=== PATIENT | male | born 1960 | race Caucasian/White ===

== ENCOUNTER 2020-03-30 17:35 | Emergency (ER) | payer OTHER, SELFPAY ==
--- NOTE | ~2020-03-30 | XR_ITS ---
EXAMINATION: XR knee RT min 4V DATE: 03/30/2020 18:25 INDICATION: Right knee pain TECHNIQUE: Four views of the right knee were obtained. COMPARISON: None. FINDINGS: Alignment is normal. No fracture or osteochondral lesion. There is mild tricompartmental os teoarthritis characterized by tiny marginal osteophytes. There is a small knee joint effusion. Soft t issues are unremarkable. IMPRESSION: 1. Small knee joint effusion and osteoarthritis without acute osseous abnormality. Reviewed, dictated and finalized at location A. [employer] IMPRESSION: 1. Small knee joint effusion and osteoarthritis without acute osseous abnormali ty.
[2020-03-30 17:53] VITALS: BP 152/103; PULSE 88; RESP 16; TEMP 36.9; O2SAT 99
--- NOTE | 2020-03-30 18:05 | ED.GENADULT ---
HPI - General Adult General Chief complaint: Extremity Injury, Lower Stated complaint: Knee Pain Time Seen by Provider: 03/30/20 18:05 Source: patient and RN notes reviewed Mode of arrival: ambulatory Limitations: no limitations History of Present Illness HPI narrative: 60-year-old male presents with complains of right knee pain for 1 day. 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 Ice without relief. No radiation of pain. No numbness or tingling, or bleeding. No swelling. No loss of mobility. Exacerbating factor consist of bearing weight. No fever. Remains active. The patient reports he have not been diagnosed with COVID-19. The patient reports he is not waiting for the results of a COVID-19 lab test. The patient reports he do not have chills, weakness, or fatigue. The patient reports he do not have a new or worsening cough or shortness of breath. Denies chest pain. The patient reports he do not have any rhinorrhea, congestion, loss of taste or smell, sore throat, nausea, vomiting, abdominal pain, and diarrhea. Tolerating po intake well. Denies recent traveling. Denies concerns for COVID-19 or exposures been home with limited outdoor exposure except for essential household needs, work, and return home. At this time, patient is not suspected of having COVID-19. Some parts of this dictation were generated by voice recognition software and may contain typographical and/or grammatical inaccuracies. Related Data Home Medications Medication Instructions Recorded Confirmed amlodipine [Norvasc] 10 mg PO DAILY 03/30/20 03/30/20 aspirin [Adult Aspirin EC Low 81 mg PO DAILY 03/30/20 03/30/20 Strength] losartan 50 mg PO DAILY 03/30/20 03/30/20 metoprolol succinate [Toprol XL] 50 mg PO BID 03/30/20 03/30/20 rivaroxaban [Xarelto] 20 mg PO DAILY 03/30/20 03/30/20 simvastatin [Zocor] 20 mg PO HS 03/30/20 03/30/20 Allergies Allergy/AdvReac Type Severity Reaction Status Date / Time No Known Allergies Allergy Verified 03/30/20 17:55 Review of Systems Review of Systems: Narrative: CONSTITUTIONAL: Denies fever, chills, sweats. EYES: Denies visual changes, redness, discharge. ENT: Denies rhinorrhea, congestion, sore throat, otalgia. CARDIOVASCULAR: Denies chest pain, palpitations, edema. RESPIRATORY: Denies dyspnea, wheezing, cough. GASTROINTESTINAL: Denies abdominal pain, nausea, vomiting, diarrhea. SKIN: Denies rash or itching. MUSCULOSKELETAL: Denies acute back pain or myalgia. Complains of Right knee pain. NEUROLOGIC: Denies numbness or focal weakness. PSYCHIATRIC: Denies anxiety or depression. All other systems reviewed & are unremarkable except as noted in HPI and below. [facility] Past Medical History Medical History (Updated 03/31/20 @ 00:00 by Jon Ricketts) Atrial fibrillation Hypercholesteremia Hypertension Obesity Surgical History Surgical History (Updated 03/30/20 @ 18:24 by SHANICE Pyle) History of adenoidectomy History of surgery on upper extremity Left elbow History of tonsillectomy Hx of appendectomy Family History Family History (Updated 03/30/20 @ 18:25 by SHANICE Pyle) Father , Related to emphysema Smoker in home Mother , Related to GI problems GI problem Social History Social History (Updated 03/30/20 @ 18:26 by SHANICE Pyle) Smoking status: Former smoker Tobacco type: cigarettes Second hand tobacco smoke exposure: No Smoking end date: 07/10/16 Alcohol intake: never Substance use: never Living arrangements: with family Additional living arrangements comments: spouse Occupation/Education: occupation Gender identity (if verbalized by the patient): Male Sexual Orientation (if Verbalized by the Patient): Straight or Heterosexual Comments At time of signature, agree with nurse past medical, surgical, social, a
[2020-03-30 18:45] VITALS: BP 130/86
== END 2020-03-30 18:51 | disposition home or self-care (01) ==
PROVIDERS: Emergency Provider Nurse Practitioner Family; PCP Family Medicine
DX: S80.01XA Contusion of right knee, initial encounter (principal); X58.XXXA Exposure to other specified factors, initial encounter; I48.91 Unspecified atrial fibrillation; E78.00 Pure hypercholesterolemia, unspecified; I10 Essential (primary) hypertension; E66.9 Obesity, unspecified; Z68.37 Body mass index [BMI] 37.0-37.9, adult
CPT/HCPCS: 73564; 99213; G0463

== ENCOUNTER → 2021-08-27 09:48 | Outpatient (CLI) | payer OTHER, SELFPAY ==
--- NOTE | ~2021-08-27 | XR_ITS ---
EXAM: XR shoulder LT min 2V DATE: 08/27/2021 10:16 HISTORY: Chronic left shoulder pain . COMPARISON: None available. FINDINGS: Normal mineralization. No fracture or dislocation. No lytic or blastic lesion. Glenohumera l narrowing, subchondral sclerosis, and osteophytosis. Mild degenerative AC joint change. No erosion or periosteal change. Soft tissues within normal limits. IMPRESSION: Moderate glenohumeral osteoarthritis. Reviewed, dictated and finalized at location K.
== END ==
PROVIDERS: PCP Physician Assistant Medical; Visit Provider Physician Assistant Medical
DX: M19.012 Primary osteoarthritis, left shoulder (principal)
CPT/HCPCS: 73030

== ENCOUNTER 2023-02-28 18:11 | Emergency (ER) | payer OTHER, SELFPAY ==
[2023-02-28 18:24] VITALS: BP 152/79; PULSE 86; RESP 16; TEMP 38.3; O2SAT 98
--- NOTE | 2023-02-28 18:26 | ED.URI ---
HPI - URI/Sore Throat General Chief Complaint: Upper Respiratory Infection Stated Complaint: POS COVID test today Time Seen by Provider: 02/28/23 18:24 Source: patient Mode of arrival: ambulatory Limitations: no limitations History of Present Illness HPI Narrative: Herb is a 62-year-old male patient presenting to the clinic today with complaints of cough, congestion, runny nose, and fever. Reports he did at home COVID test and was positive. Denies any chest pain or shortness of breath. MD elicited complaint: fever, cough, sore throat, rhinorrhea and nasal congestion Related Data Home Medications Medication Instructions Recorded Confirmed amlodipine 10 mg tablet (Norvasc) 10 mg PO DAILY 03/30/20 02/28/23 aspirin 81 mg tablet,delayed 81 mg PO DAILY 03/30/20 02/28/23 release losartan 50 mg tablet 50 mg PO DAILY 03/30/20 02/28/23 metoprolol succinate 50 mg 50 mg PO BID 03/30/20 02/28/23 tablet,extended release 24 hr (Toprol XL) rivaroxaban 20 mg tablet (Xarelto) 20 mg PO DAILY 03/30/20 02/28/23 simvastatin 20 mg tablet (Zocor) 20 mg PO HS 03/30/20 02/28/23 furosemide 20 mg tablet 20 mg PO DAILY 02/28/23 02/28/23 Allergies Allergy/AdvReac Type Severity Reaction Status Date / Time No Known Allergies Allergy Verified 02/28/23 18:21 Review of Systems Review of Systems: Pertinent positives per HPI. Patient denies any rash, headache, visual changes, dizziness, shortness of breath, chest pain, palpitations, nausea, vomiting, diarrhea, constipation, abdominal pain, or any urinary issues. [facility] Past Medical History Medical History Atrial fibrillation Hypercholesteremia Hypertension Obesity Surgical History Surgical History History of adenoidectomy History of surgery on upper extremity Left elbow History of tonsillectomy Hx of appendectomy Family History Family History Father , Related to emphysema Smoker in home Mother , Related to GI problems GI problem Social History Social History Smoking status: Former smoker Tobacco type: cigarettes Second hand tobacco smoke exposure: No Smoking end date: 07/10/16 Alcohol intake: never Substance use: never Living arrangements: with family Additional living arrangements comments: spouse Occupation/Education: occupation Gender identity (if verbalized by the patient): Male Sexual Orientation (if Verbalized by the Patient): Straight or Heterosexual Comments At the time of my signature, I reviewed and agree with the nursing past medical, surgical, social, and family history. There is no relevant family history pertinent to the patient complaint. Exam Narrative: General: Well-developed, well nourished, in no apparent distress Head: Normocephalic, atraumatic Eyes: Pupils equally round and reactive to light bilaterally, EOM intact, sclera and conjunctive clear, no discharge, lids normal Ears: TMs intact and clear, ear canals clear, no drainage, grossly hearing normal. Nose: Nares patent, clear nasal discharge, no inflammation, no sinus tenderness. Mouth: Oral pharynx without lesions or masses, good dentition, MMM. Neck: Supple, trachea midline, no enlargement of anterior or posterior cervical nodes, no thyroid masses or goiter palpable. Cardio: Regular rate and rhythm, s1 and s2 normal, no murmur appreciated. Resp: Clear to auscultation bilaterally, no rhonchi, rales, wheezing or rubs Course Course Emergency Course: Portions of this record may have been created with voice recognition software. Level of Care: Express Care Visit Vital Signs Vital signs: Vital Signs Temperature 38.3 C H 02/28/23 18:24 Pulse Rate 86 02/28/23 18:24 Respiratory Rate 16 02/28/23
== END 2023-02-28 18:44 | disposition home or self-care (01) ==
PROVIDERS: Emergency Provider Nurse Practitioner Family; PCP Physician Assistant Medical
DX: U07.1 COVID-19 (principal); Z87.891 Personal history of nicotine dependence; I48.91 Unspecified atrial fibrillation; E78.00 Pure hypercholesterolemia, unspecified; I10 Essential (primary) hypertension; E66.9 Obesity, unspecified; Z68.36 Body mass index [BMI] 36.0-36.9, adult; Z79.82 Long term (current) use of aspirin
CPT/HCPCS: 87426; 99213; C9803; G0463